=== PATIENT | female | born 1970 | race African-American/Black ===

== ENCOUNTER 2023-01-07 13:05 | Emergency (ER) | payer MEDICAID ==
[~2023-01-07] VITALS: Ht 167.6 cm; Wt 72.0 kg
[2023-01-07 13:19] VITALS: BP 148/99; PULSE 52; RESP 20; TEMP 98.7; O2SAT 100
== END 2023-01-07 14:38 | disposition home or self-care (01) ==
LOC: ER 13:05
DX: S83.91XA Sprain of unspecified site of right knee, initial encounter (principal); J45.909 Unspecified asthma, uncomplicated; V49.9XXA Car occupant (driver) (passenger) injured in unspecified traffic accident, initial encounter; Y93.89 Activity, other specified; Y92.89 Other specified places as the place of occurrence of the external cause; Y99.8 Other external cause status
CPT/HCPCS: 99281